=== PATIENT | female | born 1990 ===

== ENCOUNTER 2017-06-15 14:20 | Emergency (ER) | payer OTHER ==
[2017-06-15 15:13] VITALS: BP 113/63
--- NOTE | 2017-06-15 15:33 | UC ---
General HPI - HPI Summary HPI Summary: This 27-year-old [employer] student today for medication refill. She ran out of her Pristiq 3 days ago. States that she is beginning to feel nauseated had some headaches would like to know if she could get a bridge prescription until she sees her psychiatrist at [employer] in the upcoming week. - History of Current Complaint Chief Complaint: UCMedRefill Stated Complaint: MED REFILL Time Seen by Provider: 06/15/17 15:26 Hx Obtained From: Patient Onset/Duration: Sudden Onset Timing: Constant Onset Severity: Mild Current Severity: Mild Pain Intensity: 0 - Allergy/Home Medications Allergies/Adverse Reactions: Allergies Allergy/AdvReac Type Severity Reaction Status Date / Time No Known Allergies Allergy Verified 06/15/17 15:13 PMH/Surg Hx/FS Hx/Imm Hx Previously Healthy: No Psychological History: Depression - Surgical History Surgical History: None - Family History Known Family History: Positive: None - Social History Occupation: Student Lives: Dormitory/Roommates Alcohol Use: Weekly Substance Use Type: None Smoking Status (MU): Never Smoked Tobacco Review of Systems Constitutional: Negative Skin: Negative Eyes: Negative ENT: Negative Respiratory: Negative Cardiovascular: Negative Gastrointestinal: Negative Genitourinary: Negative Motor: Negative Neurovascular: Negative Musculoskeletal: Negative Neurological: Negative Psychological: Negative Is Patient Immunocompromised?: No All Other Systems Reviewed And Are Negative: Yes Physical Exam Triage Information Reviewed: Yes Appearance: Well-Appearing, No Pain Distress, Well-Nourished Vital Signs: Initial Vital Signs Temp 98.1 F 06/15/17 15:10 Pulse 62 06/15/17 15:10 Resp 18 06/15/17 15:10 BP 113/63 06/15/17 15:10 Pulse Ox 100 06/15/17 15:10 Vital Signs Reviewed: Yes Eye Exam: Normal Eyes: Positive: Conjunctiva Clear ENT Exam: Normal ENT: Positive: Normal ENT inspection, Hearing grossly normal. Negative: Trismus , Muffled voice, Hoarse voice Dental Exam: Normal Neck exam: Normal Neck: Positive: Supple, Nontender, No Lymphadenopathy Respiratory Exam: Normal Respiratory: Positive: No respiratory distress, No accessory muscle use Cardiovascular Exam: Normal Cardiovascular: Positive: Brisk Capillary Refill Musculoskeletal Exam: Normal Musculoskeletal: Positive: Strength Intact, ROM Intact, No Edema Neurological Exam: Normal Neurological: Positive: Alert, Muscle Tone Normal Psychological Exam: Normal Skin Exam: Normal Course/Dx - Course Course Of Treatment: Prestiq 50 mg po qd # 10. Follow with MD at [facility] as planned - Differential Dx - Multi-Symptom Provider Diagnoses: Stable Depression, med refill Discharge - Sign-Out/Discharge Documenting (check all that apply): Discharge - Discharge Plan Condition: Stable Disposition: HOME Prescriptions: Desvenlafaxine Succinate [Pristiq] 50 mg PO DAILY #10 tab.er.24h Patient Education Materials: Depression (ED) Referrals: [facility] [Outside] - As Soon As Possible - Billing Disposition and Condition Condition: STABLE Disposition: HOME
== END 2017-06-15 15:38 | disposition home or self-care (01) ==
LOC: UCEAST 14:20
DX: F32.9 Major depressive disorder, single episode, unspecified (principal); Z76.0 Encounter for issue of repeat prescription
CPT/HCPCS: 99202; G0463